=== PATIENT | female | born 1960 | race African-American/Black ===

== ENCOUNTER 2018-09-05 20:55 | Inpatient (IN) | payer MEDICAID ==
[~2018-09-05] VITALS: Ht 160 cm; Wt 76.8 kg
[~2018-09-05 20:55] MED LIST: ASPI81CH43; ATO40T; PAXIL
[2018-09-05] MEDS ORDERED: MORPHINE SULFATE 4 MG/ML SYR/VIAL IV ONE ×2 (21:15→22:15)
[2018-09-05] MEDS ORDERED: PROMETHAZINE HCL 25 MG/ML 1ML IV ONE (21:15)
[2018-09-05] MEDS ORDERED: ONDANSETRON HCL 4 MG/2 ML VIAL IV ONE (21:30)
[2018-09-05 22:14] LABS: Basophils # (auto) 0 uL; Basophils % (auto) 0.3 % (0.0-2.0); Eosinophils # (auto) 0 uL; Eosinophils % (auto) 0.1 % (0.0-7.0); Hemoglobin 14.4 g/dL (12.2-16.2); Lymphocytes # (auto) 1.7 uL; Lymphocytes % (auto) 14.3 % (10.0-50.0); Mean Corpuscular Hemoglobin 31.6 pg (28.0-32.0); Mean Corpuscular Hgb Conc. 33.5 g/dL (32.0-36.0); Mean Corpuscular Volume 94.3 fL (80.0-100.0); Monocytes # (auto) 0.5 uL; Monocytes % (auto) 3.9 % (0.0-12.0); Neutrophils # (auto) 9.7 uL; Neutrophils % (auto) 81.4 % (37.0-80.0); Platelet Count (auto) 279 10^3/uL (140-450); Red Blood Cells 4.56 10^6/uL (4.0-5.20); Red Cell Distribution Width 13.8 % (11.8-14.3); White Blood Cell 11.9 10^3/uL (4.4-10.8)
[2018-09-05 22:27] LABS: Alanine Aminotransferase 30 U/L (13-56); Albumin 4.3 g/dL (3.4-5.0); Anion Gap 7 (5-15); Aspartate Aminotransferase 18 U/L (15-37); BUN/Creatinine Ratio 17.1; Blood Urea Nitrogen 13 mg/dL (7-18); Carbon Dioxide 27 mmol/L (21-32); Chloride 109 mmol/L (98-107); GFR African American 101 mL/min; GFR Non-African American 83 mL/min; Glucose 109 mg/dL (74-106); Lipase 246 U/L (73-393); Magnesium 2.1 mg/dL (1.6-2.6); Potassium 3.4 mmol/L (3.5-5.1); Sodium 143 mmol/L (136-145)
[2018-09-05 22:33] LABS: Alkaline Phosphatase 91 U/L (45-117); Amylase 102 U/L (25-115); Bilirubin, Total 0.3 mg/dL (0.2-1.0); Blood Alcohol < 3.0 mg/dL (0-5); Total Protein 7.4 g/dL (6.4-8.2)
[2018-09-05 22:37] LABS: Partial Thromboplastin Time 23.6 sec (23.78-33.04); Prothrombin Time 10.7 sec (9.27-12.13)
[2018-09-05] MEDS ORDERED: IOHEXOL 300 MG/ML 100ML BOTTLE IJ ONE (22:54)
[2018-09-05] MEDS ORDERED: SODIUM CHLORIDE 0.9% 1,000 ML IV ONE (23:30)
[2018-09-06] MEDS ORDERED: CIPROFLOXACIN 400MG/200ML 200 ML IV ONE (00:30)
[2018-09-06] MEDS ORDERED: PROMETHAZINE HCL 25 MG/ML 1ML IV ONE (01:45)
[2018-09-06] MEDS ORDERED: HYDROmorphone HCL 2 MG/ML VL IV ONE (01:45)
[2018-09-06] MEDS ORDERED: metroNIDAZOLE 500MG/100ML 100 ML IV ONE (02:00)
[2018-09-06] MEDS ORDERED: SODIUM CHLORIDE 0.9% 1,000 ML IV SCH (04:30)
[2018-09-06] MEDS ORDERED: POTASSIUM CHL 20 Meq TABLET PO ONE (04:30)
[2018-09-06] MEDS ORDERED: ACETAMINOPHEN 500 MG TAB PO PRN (04:30)
[2018-09-06] MEDS ORDERED: metroNIDAZOLE 500MG/100ML 100 ML IV SCH (06:00)
[2018-09-06 07:52] LABS: Basophils # (auto) 0 uL; Basophils % (auto) 0.2 % (0.0-2.0); Eosinophils # (auto) 0 uL; Hematocrit 42.2 % (36.0-46.0); Hemoglobin 14.1 g/dL (12.2-16.2); Lymphocytes # (auto) 2.3 uL; Lymphocytes % (auto) 24.5 % (10.0-50.0); Mean Corpuscular Hemoglobin 31.5 pg (28.0-32.0); Mean Corpuscular Hgb Conc. 33.4 g/dL (32.0-36.0); Mean Corpuscular Volume 94.3 fL (80.0-100.0); Monocytes # (auto) 0.5 uL; Monocytes % (auto) 5.5 % (0.0-12.0); Neutrophils # (auto) 6.5 uL; Neutrophils % (auto) 69.8 % (37.0-80.0); Nucleated Red Blood Cells % 0.2 %; Platelet Count (auto) 285 10^3/uL (140-450); Red Blood Cells 4.47 10^6/uL (4.0-5.20); Red Cell Distribution Width 13.9 % (11.8-14.3); White Blood Cell 9.2 10^3/uL (4.4-10.8)
[2018-09-06 08:13] LABS: BUN/Creatinine Ratio 10.2; Calcium 9.1 mg/dL (8.5-10.1); Potassium 3.7 mmol/L (3.5-5.1)
[2018-09-06] MEDS ORDERED: cefTRIAXone 1GM/50ML D5W 50 ML IV SCH (09:00)
[2018-09-06] MEDS: ONDANSETRON HCL 4 MG/2 ML VIAL IV PRN ×2 (11:08→20:57)
[2018-09-06] MEDS ORDERED: GASTROGRAFIN 30 ML SOL ONE (11:37)
[2018-09-06] MEDS ORDERED: FAMOTIDINE (10MG/ML) 2ML VL IV ONE (11:45)
[2018-09-06] MEDS: D5W/SOD CHL 0.45%/KCL 20MEQ 1,000 ML IV SCH ×2 (12:09→21:30)
[2018-09-06] MEDS ORDERED: GOLYTELY 4L KIT PO ONE (14:15)
[2018-09-06 14:16] VITALS: BP 185/91
[2018-09-06] MEDS: HYDROmorphone HCL 2 MG/ML VL IV PRN ×2 (16:31→20:57)
[2018-09-06 16:51] VITALS: BP 151/88
[2018-09-06 22:05] VITALS: BP 157/91
[2018-09-06] MEDS: PANTOPRAZOLE 40 MG/10 ML VIAL IV SCH (22:46)
[2018-09-07] MEDS: HYDROmorphone HCL 2 MG/ML VL IV PRN ×2 (00:47→03:59)
[2018-09-07] MEDS: ONDANSETRON HCL 4 MG/2 ML VIAL IV PRN (03:59)
[2018-09-07 05:00] VITALS: BP 157/86
[2018-09-07] MEDS ORDERED: GOLYTELY 4L KIT PO ONE (06:00)
[2018-09-07 07:00] LABS: Basophils # (auto) 0 uL; Basophils % (auto) 0.3 % (0.0-2.0); Eosinophils # (auto) 0 uL; Hematocrit 36.9 % (36.0-46.0); Hemoglobin 12.4 g/dL (12.2-16.2); Lymphocytes # (auto) 3.4 uL; Lymphocytes % (auto) 26.3 % (10.0-50.0); Mean Corpuscular Hemoglobin 31.5 pg (28.0-32.0); Mean Corpuscular Hgb Conc. 33.6 g/dL (32.0-36.0); Mean Corpuscular Volume 93.8 fL (80.0-100.0); Monocytes # (auto) 0.9 uL; Monocytes % (auto) 7.3 % (0.0-12.0); Neutrophils # (auto) 8.5 uL; Neutrophils % (auto) 66.1 % (37.0-80.0); Platelet Count (auto) 239 10^3/uL (140-450); Red Blood Cells 3.94 10^6/uL (4.0-5.20); Red Cell Distribution Width 14.1 % (11.8-14.3); White Blood Cell 12.8 10^3/uL (4.4-10.8)
[2018-09-07 07:30] LABS: BUN/Creatinine Ratio 12.9; Calcium 8.5 mg/dL (8.5-10.1); Potassium 3.3 mmol/L (3.5-5.1)
[2018-09-07] MEDS: D5W/SOD CHL 0.45%/KCL 20MEQ 1,000 ML IV SCH (08:47)
[2018-09-07 09:00] VITALS: BP 165/98
[2018-09-07] MEDS: PANTOPRAZOLE 40 MG/10 ML VIAL IV SCH (09:47)
[2018-09-07] MEDS ORDERED: SODIUM CHLORIDE LOCK 10 ML ONE (09:50)
[2018-09-07] MEDS: MORPHINE SULFATE 4 MG/ML SYR/VIAL IV PRN ×2 (10:32→22:45)
[2018-09-07 11:00] VITALS: BP 189/88
[2018-09-07] MEDS ORDERED: NIFEdipine ER 30 MG TAB PO ONE (11:15)
[2018-09-07] MEDS ORDERED: LISINOPRIL 20 MG TAB PO ONE (11:15)
[2018-09-07] MEDS ORDERED: hydrALAZINE HCL 20 MG/ML VL IV STA (11:37)
[2018-09-07] MEDS: fentaNYL CITRATE 100 MCG/2 ML VL ONE ×2 (11:58→12:01)
[2018-09-07] MEDS: MIDAZOLAM HCL 5 MG/ML-1ML VIAL ONE ×3 (11:58→12:04)
[2018-09-07] MEDS ORDERED: fentaNYL CITRATE 100 MCG/2 ML VL ONE (12:06)
[2018-09-07] MEDS ORDERED: MIDAZOLAM HCL 5 MG/ML-1ML VIAL ONE (12:06)
[2018-09-07] MEDS ORDERED: MEPERIDINE HCL (50 MG/ML) 1 ML VIAL ONE (12:55)
[2018-09-07] MEDS ORDERED: PROPOFOL 10 MG/ML 20 ML IV ONE (13:00)
[2018-09-07] MEDS ORDERED: DEXAMETHASONE SOD PHOS 10MG/1ML VIAL INJ ONE (13:00)
[2018-09-07] MEDS ORDERED: HYDROmorphone HCL 2 MG/ML VL IV PRN (13:30)
[2018-09-07] MEDS ORDERED: ePHEDrine SULFATE 50 MG/ML AMP IV PRN (13:30)
[2018-09-07] MEDS ORDERED: MIDAZOLAM HCL 1MG/1ML-2 ML VIAL IV PRN (13:30)
[2018-09-07] MEDS ORDERED: ONDANSETRON HCL 4 MG/2 ML VIAL IV ONE (13:30)
[2018-09-07] MEDS ORDERED: LABETALOL HCL 5 MG/ML 4ML SYRINGE IV PRN (13:30)
[2018-09-07] MEDS ORDERED: MORPHINE SULFATE 4 MG/ML SYR/VIAL IV PRN (13:30)
[2018-09-07] MEDS ORDERED: KETOROLAC TROMETH 30 MG/ML 1ML VIAL IV ONE (13:30)
[2018-09-07] MEDS ORDERED: MORPHINE SULFATE 4 MG/ML SYR/VIAL IV ONE (14:00)
[2018-09-07] MEDS ORDERED: LABETALOL HCL 5 MG/ML 4ML SYRINGE IV ONE (14:03)
[2018-09-07] MEDS: metroNIDAZOLE 500MG/100ML 100 ML IV SCH ×2 (14:29→22:38)
[2018-09-07 16:00] VITALS: BP 153/88
[2018-09-07] MEDS: SUCRALFATE 1 GM/10 ML ORAL SUSP PO SCH ×2 (17:12→22:38)
[2018-09-07 20:00] VITALS: BP 177/88
[2018-09-07 21:30] VITALS: BP 137/72
[2018-09-07] MEDS: PANTOPRAZOLE 40 MG TAB PO SCH (22:38)
[2018-09-08] MEDS: ONDANSETRON HCL 4 MG/2 ML VIAL IV PRN (00:31)
[2018-09-08] MEDS ORDERED: HYDROcodone-ACET 7.5/325MG TAB PO ONE (01:00)
[2018-09-08 02:42] LABS: Urine Bacteria NONE SEEN /hpf (None Seen); Urine Blood Negative /uL (Negative); Urine Mucus FEW (None Seen); Urine Specific Gravity 1.006 (1.001-1.035); Urine WBC 1 /hpf (0 - 5)
[2018-09-08 02:53] LABS: Alcohol, Urine < 3.0 mg/dL (0-5); Amphetamine Screen, Urine NEGATIVE (NEGATIVE); Barbiturate Scree,Urine NEGATIVE (NEGATIVE); Benzodiazephine Screen, Urine POSITIVE (NEGATIVE); Cannabinoid Screen, Urine POSITIVE (NEGATIVE); Cocaine Screen, Urine NEGATIVE (NEGATIVE); Opiate Scree,Urine NEGATIVE (NEGATIVE); Phencyclidine Screen, Urine NEGATIVE (NEGATIVE)
[2018-09-08] MEDS: D5W/SOD CHL 0.45%/KCL 20MEQ 1,000 ML IV SCH ×2 (03:57)
[2018-09-08 05:00] VITALS: BP 139/82
[2018-09-08 05:33] LABS: Basophils # (auto) 0 uL; Basophils % (auto) 0.2 % (0.0-2.0); Eosinophils # (auto) 0 uL; Hematocrit 40.6 % (36.0-46.0); Hemoglobin 13.7 g/dL (12.2-16.2); Lymphocytes % (auto) 33.4 % (10.0-50.0); Mean Corpuscular Hemoglobin 31.3 pg (28.0-32.0); Mean Corpuscular Hgb Conc. 33.8 g/dL (32.0-36.0); Mean Corpuscular Volume 92.8 fL (80.0-100.0); Monocytes # (auto) 1.2 uL; Monocytes % (auto) 7.9 % (0.0-12.0); Neutrophils # (auto) 8.9 uL; Neutrophils % (auto) 58.5 % (37.0-80.0); Nucleated Red Blood Cells % 0.1 %; Platelet Count (auto) 252 10^3/uL (140-450); Red Blood Cells 4.38 10^6/uL (4.0-5.20); Red Cell Distribution Width 13.5 % (11.8-14.3); White Blood Cell 15.1 10^3/uL (4.4-10.8)
[2018-09-08 05:56] LABS: BUN/Creatinine Ratio 6.1; Potassium 3.2 mmol/L (3.5-5.1)
[2018-09-08] MEDS: metroNIDAZOLE 500MG/100ML 100 ML IV SCH (06:44)
[2018-09-08] MEDS: SUCRALFATE 1 GM/10 ML ORAL SUSP PO SCH ×2 (06:44→11:56)
[2018-09-08 09:00] VITALS: BP 136/83
[2018-09-08] MEDS ORDERED: LIDOCAINE VISCOUS 2% 15ML UD ONE (09:08)
[2018-09-08] MEDS ORDERED: LISINOPRIL 20 MG TAB PO SCH (10:00)
[2018-09-08] MEDS ORDERED: NIFEdipine ER 30 MG TAB PO SCH (10:00)
[2018-09-08] MEDS: PANTOPRAZOLE 40 MG TAB PO SCH (10:34)
[2018-09-08] MEDS ORDERED: POTASSIUM CHL 20 Meq TABLET PO ONE (10:45)
[2018-09-08 12:00] VITALS: BP 136/83
== END 2018-09-08 13:30 | disposition home or self-care (01) | DRG 241 ==
LOC: EDBD 20:55 → ER 21:06 → OVERFLOW 21:07 → CENTRAL 09-06 13:33
PROVIDERS: ADMIT Nurse Practitioner Family; ATTEND Internal Medicine
PROC: 0DB68ZX Excision of Stomach, Via Natural or Artificial Opening Endoscopic, Diagnostic (ICD-10-PCS; principal; 2018-09-07 11:55)
PROC: 0DBN8ZX Excision of Sigmoid Colon, Via Natural or Artificial Opening Endoscopic, Diagnostic (ICD-10-PCS; 2018-09-07 12:53)
DX: K29.70 Gastritis, unspecified, without bleeding (principal); R65.10 Systemic inflammatory response syndrome (SIRS) of non-infectious origin without acute organ dysfunction; R16.0 Hepatomegaly, not elsewhere classified; E78.5 Hyperlipidemia, unspecified; K63.5 Polyp of colon; K64.8 Other hemorrhoids; K44.9 Diaphragmatic hernia without obstruction or gangrene; Z83.3 Family history of diabetes mellitus; F17.200 Nicotine dependence, unspecified, uncomplicated; Z53.8 Procedure and treatment not carried out for other reasons; K57.30 Diverticulosis of large intestine without perforation or abscess without bleeding; F32.9 Major depressive disorder, single episode, unspecified
CPT/HCPCS: 36415; 71045; 74177; 80048; 80053; 80307; 80320; 81001; 82150; 83605; 83690; 83735; 85025; 85610; 85730; 87040; 87045; 87493; 87899; 93005; 94761; 96365; 96366; 96367; 96368; 96375; A6257; C9113; G0378; J0696; J1100; J2250; J2405; J2704; J3490

== ENCOUNTER 2023-10-21 11:09 | Inpatient (IN) | payer MEDICAID ==
[~2023-10-21] VITALS: Ht 160 cm; Wt 84.7 kg
[2023-10-21] MEDS ORDERED: ASPirin-EC 325mg tab PO ONE (11:45)
[2023-10-21 12:51] LABS: Base Excess -1.6 mmol/L (-2.0-2.0)
[2023-10-21 13:29] LABS: Basophils # (auto) 0 10 ^3/uL (0-0.2); Basophils % (auto) 0.2 % (0.0-2.0); Eosinophils # (auto) 0.1 10 ^3/uL (0-0.8); Eosinophils % (auto) 0.6 % (0.0-7.0); Hematocrit 44.2 % (36.0-46.0); Hemoglobin 14.7 g/dL (12.2-16.2); Lymphocytes # (auto) 3.2 10 ^3/uL (0.4-5.4); Lymphocytes % (auto) 36.8 % (10.0-50.0); Mean Corpuscular Hemoglobin 31.9 pg (28.0-32.0); Mean Corpuscular Hgb Conc. 33.2 g/dL (32.0-36.0); Monocytes # (auto) 0.4 10 ^3/uL (0-1.3); Monocytes % (auto) 4.6 % (0.0-12.0); Neutrophils % (auto) 57.8 % (37.0-80.0); White Blood Cell 8.6 10^3/uL (4.4-10.8)
[2023-10-21 13:43] LABS: Alanine Aminotransferase 83 U/L (7-40); Albumin 4.6 g/dL (3.2-4.8); Alkaline Phosphatase 94 U/L (46-116); Anion Gap 6 (5-15); Aspartate Aminotransferase 39 U/L (13-40); BUN/Creatinine Ratio 9.7 (10.0-20.0); Blood Urea Nitrogen 7 mg/dL (9-23); Calcium 9.7 mg/dL (8.7-10.4); Carbon Dioxide 26 mmol/L (20-30); Chloride 108 mmol/L (98-107); Glucose 99 mg/dL (74-106); Lipase 43 U/L (12-53); Potassium 4.1 mmol/L (3.5-5.1); Sodium 140 mmol/L (136-145)
[2023-10-21 13:44] LABS: Bilirubin, Total 0.4 mg/dL (0.2-1.0); Total Protein 6.9 g/dL (5.7-8.2)
[2023-10-21 13:46] LABS: INR 1.05 (0.9-1.15)
[2023-10-21] MEDS ORDERED: ACETAMINOPHEN 325 MG TAB PO PRN (15:30)
[2023-10-21] MEDS ORDERED: ONDANSETRON HCL 4 MG/2 ML VIAL IV PRN (15:30)
[2023-10-21] MEDS ORDERED: NITROGLYCERIN 0.4 MG SL TAB SL PRN (15:30)
[2023-10-21] MEDS ORDERED: MORPHINE SULFATE 4 MG/ML SYR/VIAL IV PRN (15:30)
[2023-10-21 16:00] VITALS: BP 124/72; PULSE 71; RESP 18; TEMP 98; O2SAT 99
[2023-10-21 16:42] LABS: INR 1.05 (0.9-1.15)
[2023-10-21 18:06] VITALS: PULSE 68; RESP 23; O2SAT 99
[2023-10-21 19:05] VITALS: PULSE 63; RESP 18; O2SAT 99
[2023-10-21 19:05] LABS: Urine Bacteria NONE SEEN /hpf (None Seen); Urine Blood Negative /uL (Negative); Urine Clarity Clear (Clear); Urine Color Colorless (Yellow); Urine Protein, UAD Negative (Negative); Urine Specific Gravity 1.007 (1.001-1.035); Urine Urobilinogen Normal (Negative); Urine WBC 2 /hpf (0 - 5)
[2023-10-21] MEDS: IPRATROPIUM BROM 0.5 MG/2.5ML INH SOL NEB SCH (19:05)
[2023-10-21] MEDS: ALBUTEROL SULF 2.5 MG/0.5ML(0.5%) NEB SOLN NEB SCH (19:05)
[2023-10-21 19:11] VITALS: PULSE 77; RESP 16; O2SAT 96
[2023-10-21 19:45] VITALS: PULSE 70; RESP 18; O2SAT 98
[2023-10-21] MEDS ORDERED: MORPHINE SULFATE INJ 2 MG/ml SYRG IV PRN (20:15)
[2023-10-21] MEDS ORDERED: ATORVASTATIN 20 MG TAB PO SCH (22:00)
[2023-10-21 22:23] VITALS: PULSE 84; RESP 16; O2SAT 96
[2023-10-21] MEDS ORDERED: MELATONIN 5 MG TAB PO ONE ×2 (22:45)
[2023-10-21] MEDS: ATORVASTATIN 20 MG TAB PO SCH (23:00)
[2023-10-21] MEDS ORDERED: ALPR0.5T7 PO (23:13)
[2023-10-21] MEDS ORDERED: VARE1TAB12 PO (23:14)
[2023-10-21] MEDS ORDERED: CYCL-839 PO (23:16)
[2023-10-21] MEDS ORDERED: LISI20TA56 PO (23:18)
[2023-10-22] VITALS (22 sets, daily range): BP systolic 124–149; BP diastolic 70–102; PULSE 60–81; RESP 12–20; TEMP 97.7–98.9; O2SAT 95–100
[2023-10-22] MEDS: ALBUTEROL SULF 2.5 MG/0.5ML(0.5%) NEB SOLN NEB SCH ×5 (00:22→22:03)
[2023-10-22] MEDS: IPRATROPIUM BROM 0.5 MG/2.5ML INH SOL NEB SCH ×5 (00:22→22:03)
[2023-10-22 05:39] LABS: Basophils # (auto) 0 10 ^3/uL (0-0.2); Basophils % (auto) 0.1 % (0.0-2.0); Eosinophils # (auto) 0.1 10 ^3/uL (0-0.8); Eosinophils % (auto) 1.3 % (0.0-7.0); Hematocrit 39.2 % (36.0-46.0); Hemoglobin 13.3 g/dL (12.2-16.2); Lymphocytes # (auto) 4.6 10 ^3/uL (0.4-5.4); Lymphocytes % (auto) 49.2 % (10.0-50.0); Mean Corpuscular Hemoglobin 32.2 pg (28.0-32.0); Mean Corpuscular Hgb Conc. 33.9 g/dL (32.0-36.0); Mean Corpuscular Volume 94.8 fL (80.0-100.0); Monocytes # (auto) 0.6 10 ^3/uL (0-1.3); Monocytes % (auto) 6.2 % (0.0-12.0); Neutrophils % (auto) 43.2 % (37.0-80.0); Nucleated Red Blood Cells % 0.1 %; Red Blood Cells 4.13 10^6/uL (4.0-5.20); Red Cell Distribution Width 14.1 % (11.8-14.3); White Blood Cell 9.3 10^3/uL (4.4-10.8)
[2023-10-22 06:02] LABS: Alanine Aminotransferase 80 U/L (7-40); Albumin 4.1 g/dL (3.2-4.8); Alkaline Phosphatase 81 U/L (46-116); Anion Gap 9 (5-15); Aspartate Aminotransferase 45 U/L (13-40); BUN/Creatinine Ratio 12.3 (10.0-20.0); Blood Urea Nitrogen 8 mg/dL (9-23); Calcium 9.7 mg/dL (8.5-10.1); Carbon Dioxide 25 mmol/L (20-30); Chloride 108 mmol/L (98-107); Glucose 84 mg/dL (74-106); Potassium 3.6 mmol/L (3.5-5.1); Sodium 142 mmol/L (136-145)
[2023-10-22 06:03] LABS: Bilirubin, Total 0.3 mg/dL (0.2-1.0); Total Protein 6.2 g/dL (5.7-8.2)
[2023-10-22] MEDS ORDERED: OXY5T GT (07:10)
[2023-10-22] MEDS: ASPirin 81 mg TAB PO SCH (08:57)
[2023-10-22] MEDS: LISINOPRIL 20 MG TAB PO SCH (08:57)
[2023-10-22] MEDS: NICOTINE 21MG/24 HR TOPICAL PATCH TD SCH (09:58)
[2023-10-22] MEDS ORDERED: ASPirin 81 mg TAB PO SCH (10:00)
[2023-10-22] MEDS ORDERED: predniSONE 20 MG TAB PO SCH (10:00)
[2023-10-22 14:05] LABS: INR 1.05 (0.9-1.15)
[2023-10-22] MEDS ORDERED: ANGIOMAX 250 MG VIAL IV ONE (16:21)
[2023-10-22] MEDS ORDERED: SODIUM CHL 0.9% 50 ML ONE (16:22)
[2023-10-22] MEDS ORDERED: MIDAZOLAM HCL 2MG/2ML 2ml VIAL (1mg/ml) ONE (16:22)
[2023-10-22] MEDS ORDERED: HEPARIN SODIUM (PORCINE) 5000 UNITS/ML 1ML VIAL ONE (16:22)
[2023-10-22] MEDS ORDERED: fentaNYL CITRATE 100 MCG/2 ML VL ONE (16:22)
[2023-10-22] MEDS ORDERED: IODIXANOL 320MG/ML 100ML BTL IV ONE (16:22)
[2023-10-22] MEDS ORDERED: VERAPAMIL 2.5MG/ML INJ 2ML VIAL IV ONE (16:22)
[2023-10-22] MEDS ORDERED: LIDOCAINE 2%HCL (LOCAL ANESTH.) INJ 20ML MDV ONE (16:23)
[2023-10-22] MEDS ORDERED: IOHEXOL 350 MG/ML 100ML IJ ONE ×2 (16:57→17:20)
[2023-10-22] MEDS ORDERED: CLOPIDOGREL 300 MG TAB ONE (17:26)
[2023-10-22] MEDS ORDERED: hydrALAZINE HCL 20 MG/ML VL IV PRN (21:45)
[2023-10-22] MEDS: ATORVASTATIN 20 MG TAB PO SCH (21:56)
[2023-10-22] MEDS ORDERED: MELATONIN 5 MG TAB PO ONE (22:00)
[2023-10-23] VITALS (14 sets, daily range): BP systolic 92–120; BP diastolic 51–75; PULSE 65–76; RESP 16–20; TEMP 97.3–98.4; O2SAT 95–100
[2023-10-23] MEDS: IPRATROPIUM BROM 0.5 MG/2.5ML INH SOL NEB SCH ×3 (07:05→18:10)
[2023-10-23] MEDS: ALBUTEROL SULF 2.5 MG/0.5ML(0.5%) NEB SOLN NEB SCH ×3 (07:05→18:10)
[2023-10-23] MEDS: predniSONE 20 MG TAB PO SCH (08:14)
[2023-10-23] MEDS: ASPirin 81 mg TAB PO SCH (08:14)
[2023-10-23] MEDS: CLOPIDOGREL BISULFATE 75 MG TAB PO SCH (08:15)
[2023-10-23] MEDS: LISINOPRIL 20 MG TAB PO SCH (08:15)
[2023-10-23] MEDS: NICOTINE 21MG/24 HR TOPICAL PATCH TD SCH (08:15)
[2023-10-23] MEDS: ALPRAZolam 0.25 MG TAB PO PRN ×2 (11:14→20:30)
[2023-10-23 12:29] LABS: Alanine Aminotransferase 64 U/L (7-40); Albumin 4.7 g/dL (3.2-4.8); Alkaline Phosphatase 93 U/L (46-116); Anion Gap 11 (5-15); Aspartate Aminotransferase 24 U/L (13-40); BUN/Creatinine Ratio 10.9 (10.0-20.0); Bilirubin, Total 0.8 mg/dL (0.2-1.0); Blood Urea Nitrogen 7 mg/dL (9-23); Carbon Dioxide 23 mmol/L (20-30); Chloride 107 mmol/L (98-107); Glucose 107 mg/dL (74-106); Potassium 3.7 mmol/L (3.5-5.1); Sodium 141 mmol/L (136-145); Total Protein 7.1 g/dL (5.7-8.2)
[2023-10-23] MEDS: ATORVASTATIN 20 MG TAB PO SCH (21:05)
[2023-10-24] VITALS (10 sets, daily range): BP systolic 97–113; BP diastolic 60–68; PULSE 69–80; RESP 18–19; TEMP 98.3–99; O2SAT 94–100
[2023-10-24] MEDS: ALBUTEROL SULF 2.5 MG/0.5ML(0.5%) NEB SOLN NEB SCH ×3 (06:56→13:22)
[2023-10-24] MEDS: IPRATROPIUM BROM 0.5 MG/2.5ML INH SOL NEB SCH ×3 (06:56→13:22)
[2023-10-24] MEDS: predniSONE 20 MG TAB PO SCH (08:11)
[2023-10-24] MEDS: CLOPIDOGREL BISULFATE 75 MG TAB PO SCH (08:11)
[2023-10-24] MEDS: LISINOPRIL 20 MG TAB PO SCH (08:11)
[2023-10-24] MEDS: NICOTINE 21MG/24 HR TOPICAL PATCH TD SCH (08:15)
[2023-10-24] MEDS: ASPirin 81 mg TAB PO SCH (08:15)
[2023-10-24 09:30] LABS: Alanine Aminotransferase 69 U/L (7-40); Albumin 4.7 g/dL (3.2-4.8); Alkaline Phosphatase 87 U/L (46-116); Anion Gap 9 (5-15); Aspartate Aminotransferase 29 U/L (13-40); BUN/Creatinine Ratio 14.9 (10.0-20.0); Blood Urea Nitrogen 10 mg/dL (9-23); Carbon Dioxide 23 mmol/L (20-30); Chloride 107 mmol/L (98-107); Glucose 102 mg/dL (74-106); Potassium 3.5 mmol/L (3.5-5.1); Sodium 139 mmol/L (136-145)
[2023-10-24 09:31] LABS: Bilirubin, Total 0.5 mg/dL (0.2-1.0)
[2023-10-24] MEDS ORDERED: METOPROLOL SUCCINATE XL 50 MG TAB PO ONE (10:30)
[2023-10-24] MEDS ORDERED: AMIODARONE HCL 200 MG TAB PO ONE (10:30)
[2023-10-24] MEDS ORDERED: AMIO200T13 PO (10:41)
[2023-10-24] MEDS ORDERED: METO25TA93 PO (10:41)
[2023-10-24] MEDS ORDERED: ATO40T PO (10:41)
[2023-10-24] MEDS ORDERED: CLOP75TA28 PO (10:41)
[2023-10-24] MEDS ORDERED: ASPI1TAB20 PO (10:41)
[2023-10-24] MEDS ORDERED: AMIODARONE HCL 200 MG TAB PO SCH (22:00)
[2023-10-25] MEDS ORDERED: METOPROLOL SUCCINATE XL 50 MG TAB PO SCH (10:00)
== END 2023-10-24 16:15 | disposition home or self-care (01) | DRG 175 ==
LOC: ER 11:09 → TELE 15:39 → TELE-WESTW 21:30
PROVIDERS: ADMIT Nurse Practitioner Family; ATTEND Nurse Practitioner Acute Care
PROC: 027135Z Dilation of Coronary Artery, Two Arteries with Two Drug-eluting Intraluminal Devices, Percutaneous Approach (ICD-10-PCS; principal; 2023-10-22)
PROC: B211YZZ Fluoroscopy of Multiple Coronary Arteries using Other Contrast (ICD-10-PCS; 2023-10-22)
PROC: 4A023N7 Measurement of Cardiac Sampling and Pressure, Left Heart, Percutaneous Approach (ICD-10-PCS; 2023-10-22)
DX: I25.110 Atherosclerotic heart disease of native coronary artery with unstable angina pectoris (principal); J44.1 Chronic obstructive pulmonary disease with (acute) exacerbation; I24.9 Acute ischemic heart disease, unspecified; E78.5 Hyperlipidemia, unspecified; I10 Essential (primary) hypertension; F14.90 Cocaine use, unspecified, uncomplicated; E66.01 Morbid (severe) obesity due to excess calories; J98.11 Atelectasis; I48.91 Unspecified atrial fibrillation; F32.A Depression, unspecified; Z82.5 Family history of asthma and other chronic lower respiratory diseases; Z87.891 Personal history of nicotine dependence; Z82.49 Family history of ischemic heart disease and other diseases of the circulatory system; Z83.3 Family history of diabetes mellitus; Z68.33 Body mass index [BMI] 33.0-33.9, adult; Z79.01 Long term (current) use of anticoagulants; I25.2 Old myocardial infarction; Z63.4 Disappearance and death of family member; Z79.02 Long term (current) use of antithrombotics/antiplatelets; Z79.82 Long term (current) use of aspirin
CPT/HCPCS: 36415; 36600; 71045; 80053; 81001; 82805; 83690; 83735; 84100; 84484; 85025; 85379; 85610; 85730; 86850; 86900; 86901; 92928; 93005; 93306; 93458; 94640; 96374; 99152; C1874; G0378; J2250; Q9967

== ENCOUNTER → 2025-01-02 | Outpatient (CLI) | payer MEDICAID ==
[~2025-01-02] VITALS: Ht 160 cm; Wt 88.5 kg
[~2025-01-02] MED LIST changes: +ALPR0.5T7 PO; +AMIO200T13 PO; +ASPI1TAB20 PO; -ATO40T; +ATOR-507; +ATOR-507 PO; +CLOP75TA28 PO; +CYCL-839 PO; +LISI20TA56 PO; +METO25TA93 PO; +OXY5T GT; +VARE1TAB12 PO
[2025-01-02] MEDS: REGADENOSON 0.4 MG/5 ML SYRG IV ONE (09:43)
--- NOTE | 2025-01-02 14:16 | DVHSR ---
APPROVED REPORT Exam: Nuclear Stress Test Indication: Chest pain BMI: 0 Medical History Medical History: A-fib Allergies: No known drug allergies Stress Test Details Stress Test: Pharmacologic stress testing performed using 0.4 mg of regadenoson per 5 mL given IV ov er 10 seconds. HR Resting HR: 65 bpmMax Heart Rate (APMHR): 157.798444 bpm Max HR Achieved: 82 bpmTarget HR (85% APMHR): 133.675008 bpm % of APMHR: 52.23 Recovery HR: 72 bpm BP Resting BP: 149/74 mmHg Recovery BP: 134/73 mmHg ECG Resting ECG: Sinus Rhythm Clinical Reason for Termination: Completed protocol Nurse Comments Recieved pt. from [facility]. A/Ox4 on RA. Connected to director of cardiac rehabilitation, VS stable. PIV flushes well. Reviewed POC. Pt. verbalized understanding of procedure including risks and side ef fects, agrees for stress testing. Lexiscan stress test performed per protocol. Maker[employer] administered Cardiolite. Pt. tolerated well . Pt. stable, no change on exam. VS returned to baseline. Transferred to [facility] via wheelchair w/ te ch. Stress ECG Conclusion lvef 55% normal ecg portion of stress , NSR no severe ischemia noted grossly normal perfusion NM EXAM: Myocardial Perfusion REST/STRESS Imaging Protocol: Rest Tc-99m/Stress Tc-99m 1 day Resting Data Rest SPECT myocardial perfusion imaging was performed in supine position 60 minutes following the int ravenous injection of 15 mCi of Tc-99m Sestamibi. Time of rest injection: 808 Date: 01/02/2025 Time of rest imagin Date: 01/02/2025 Administration Route: IV Administration Site: Left Arm Pharmacologic Stress Pharmacologic stress test was performed by injecting Regadenoson 0.4 mg IV push followed by the intra venous injection of 38 mCi of Tc-99m Sestamibi. Time of stress injection: 944 Date: 01/02/2025 Time of stress imagin Date: 01/02/2025 Administration Route: IV Administration Site: Left Arm Gated Stress SPECT was performed 60 minutes after stress injection. The images were gated to evaluate regional wall motion and calculate left ventricular ejection fracti on. Stress only was performed in the Supine position. Nuclear Conclusion Nuclear Findings: negative for ischemia Left Ventricular Function: normal lvef 55% normal ecg portion of stress , NSR no severe ischemia noted grossly normal perfusion
== END | disposition home or self-care (01) ==
LOC: XYW 07:39
PROVIDERS: ATTEND Internal Medicine
DX: R07.9 Chest pain, unspecified (principal); I48.91 Unspecified atrial fibrillation
CPT/HCPCS: 78452; 93017; A9500

== ENCOUNTER 2025-02-11 17:53 | Inpatient (IN) | payer MEDICAID ==
[~2025-02-11] VITALS: Ht 160 cm; Wt 96.1 kg
[~2025-02-11 17:53] MED LIST changes: +AZIT-43 PO; +METH-1181 PO; +OXYC30TA PO; +PANT-62 PO; +PARO10TA93 PO; +QUET150T16 PO
--- NOTE | 2025-02-11 19:20 | DVH ---
Exam: CT CT AB PEL WO CON-NO ORAL OR IV History: abdominal pain Comparison Study: None available at time of dictation. TECHNIQUE: Multidetector CT of the abdomen was performed from lung bases to pubic symphysis. Imaging was performed without IV contrast. Axial, coronal and sagittal multiplanar reformats were obtained fr om the axial data set by the technologist. Radiation Dose Information: CT Dose: CTDI volume is 13.18 mGy. Dose-length product is 673.48 mGy*cm FINDINGS: Evaluation of solid organs is limited due to lack of intravenous contrast use. Findings: Lung Bases: No acute or significant lung base finding. Normal heart size. No pleural or pericardial effusion. Liver: The liver is normal in size. No focal lesions. Gallbladder and Biliary Tree: Unremarkable Spleen: Unremarkable Pancreas: The pancreas is grossly normal in appearance. Adrenal Glands: Unremarkable Kidneys: Kidneys are grossly normal without calculi or hydronephrosis. Bladder: Grossly unremarkable for degree of distention. Bowel: The stomach is grossly normal in appearance. Small bowel and colon are normal in caliber and d istribution. The appendix is not visualized; however, no secondary findings of acute appendicitis id entified. Ascites: Absent Lymphadenopathy: No mesenteric, retroperitoneal or periportal lymphadenopathy. Abdominal Wall and Mesentery: Unremarkable. Vasculature: The visualized abdominal aorta is normal in size and caliber. Evaluation of abdominal a nd pelvic vessels is limited due to lack of intravenous contrast. Pelvic Organs: Unremarkable Musculoskeletal: No aggressive focal bony lesions, acute fractures or dislocation. Soft tissues: Unremarkable IMPRESSION: 1. No findings of bowel obstruction. 2. No cholelithiasis Radiation optimization: All CT scans at this facility use at least one of these dose optimization conchis hniques: automated exposure control mA and/or kV adjustment per patient size (includes targeted exam s where dose is matched to clinical indication) or iterative reconstruction. HS:Y
[2025-02-11 19:36] LABS: Basophils # (auto) 0 10 ^3/uL (0-0.2); Basophils % (auto) 0.1 % (0.0-2.0); Eosinophils # (auto) 0 10 ^3/uL (0-0.8); Hematocrit 45.3 % (36.0-46.0); Hemoglobin 15.1 g/dL (12.2-16.2); Lymphocytes # (auto) 1.4 10 ^3/uL (0.4-5.4); Lymphocytes % (auto) 9.2 % (10.0-50.0); Mean Corpuscular Hemoglobin 31.5 pg (28.0-32.0); Mean Corpuscular Hgb Conc. 33.4 g/dL (32.0-36.0); Mean Corpuscular Volume 94.6 fL (80.0-100.0); Monocytes # (auto) 0.8 10 ^3/uL (0-1.3); Monocytes % (auto) 5.5 % (0.0-12.0); Neutrophils # (auto) 12.8 10 ^3/uL (1.6-8.6); Neutrophils % (auto) 85.2 % (37.0-80.0); Nucleated Red Blood Cells % 0.1 %; Platelet Count (auto) 300 10^3/uL (140-450); Red Blood Cells 4.79 10^6/uL (4.0-5.20); Red Cell Distribution Width 14.7 % (11.8-14.3)
[2025-02-11 19:54] LABS: Alanine Aminotransferase 31 U/L (7-40); Alkaline Phosphatase 92 U/L (46-116); Anion Gap 9 (5-15); Aspartate Aminotransferase 23 U/L (13-40); Bilirubin, Total 0.6 mg/dL (0.2-1.0); Blood Urea Nitrogen 14 mg/dL (9-23); Carbon Dioxide 27 mmol/L (20-31); Chloride 103 mmol/L (98-107); Lipase 27 U/L (12-53); Potassium 3.9 mmol/L (3.5-5.1); Sodium 139 mmol/L (136-145); Total Protein 7.4 g/dL (5.7-8.2)
[2025-02-11 19:57] LABS: Albumin 5.2 g/dL (3.2-4.8); Calcium 10.5 mg/dL (8.7-10.4); Glucose 135 mg/dL (74-106)
--- NOTE | 2025-02-11 20:44 | ED.PDOC ---
History of Present Illness HPI Comments 64 y/o obese F, with a history of COPD, HLD, HTN, 2 PTCA's, and 3 C-sections, is BIBA for c/o lower abdominal pain and diarrhea, today. Patient reports on having pain and diarrhea for the past few days. She states on pain radiating to her back and bilateral hips and describes it as if she had "gas" in her lower abdomen. She denies any nausea, vomiting, fever, chills, or other associated symptoms or modifiers at this time. Chief Complaint: Abdominal Pain Time Seen by MD: 18:30 Primary Care Provider: MILAGROS Reviewed Notes: Nurses Notes, Oncology Coordinator Notes, Medications, Allergies Allergies: Coded Allergies: NO KNOWN ALLERGIES (Unverified , 01/02/25) Home Meds Active Scripts Atorvastatin Calcium (Lipitor) 40 Mg Tab, 1 TAB PO QPM, #90 TAB 1 Refill Prov:JULIETH DIA MD 10/24/23 Clopidogrel Bisulfate (Plavix) 75 Mg Tab, 1 TAB PO DAILY, #90 TAB 1 Refill Prov:JULIETH DIA MD 10/24/23 Aspirin (Aspir-81) 81 Mg Tab, 1 TAB PO DAILY, #30 TAB 5 Refills Prov:JULIETH DIA MD 10/24/23 Metoprolol Succinate (Metoprolol Succinate Er) 25 Mg Tab, 1 TAB PO DAILY, #30 TAB 5 Refills Prov:JULIETH DIA MD 10/24/23 Amiodarone HCl (Amiodarone HCl) 200 Mg Tab, 200 MG PO BID, #60 TAB Prov:JULIETH DIA MD 10/24/23 Reported Medications Oxycodone Hcl (OXYCODONE HCL) 5 Mg Tb, MG GT, TAB 10/22/23 Lisinopril (Lisinopril) 20 Mg Tab, 20 MG PO DAILY for 30 Days, MG 10/21/23 Cyclobenzaprine Hcl (Cyclobenzaprine Hcl) 10 Mg Tab, 10 MG PO Q8HP PRN for FOR MUSCLE SPASM for 30 Days, MG 10/21/23 Varenicline Tartrate (Varenicline Starti... 0.5 mg X 11 & 1 mg X 42) 1 Tab Tab, 1 TAB PO BID, TAB 10/21/23 Alprazolam (Alprazolam) 0.5 Mg Tab, 1 TAB PO TID for ANXIETY, #90 TAB 10/21/23 Atorvastatin Calcium (Lipitor) 40 Mg Tab 02/03/11 [Paxil] No Conflict Check, 40 MG DAILY 06/14/10 Aspirin (Asa) 81 Mg Ch, DAILY 06/14/10 Information Source: Patient, Emergency Med Personnel Mode of Arrival: EMS Past Medical History PAST MEDICAL HISTORY: COPD, Depression, High Lipids, HTN Past Medical History (Other): obesity Surgical History: , PTCA THIRD MILLER History: No Pertinent THIRD MILLER History Family History Family History: Family hx of DM, Family hx of heart evan, Family hx of lung evan Social History Smoker: Non-Smoker, Quit Less Than 1 Year, Cigarettes Alcohol: Occasionally Drugs: Marijuana Lives In: Home All Other Systems: Reviewed and Negative (Comprehensive systems review obtained and negative except for what is stated in the HPI.) Physical Exam General Appearance: No Apparent Distress, Obese HEENT: Normal ENT Inspection, Pharynx Normal, TMs Normal Neck: Full Range of Motion, Non-Tender, Normal, Normal Inspection Respiratory: Chest Non-Tender, Lungs Clear, No Accessory Muscle Use, No Respiratory Distress, Normal Breath Sounds Cardiovascular: No Edema, No JVD, No Murmur, No Gallop, Normal Peripheral Pulses, Regular Rate/Rhythm Breast Exam: Deferred Gastrointestinal: No Organomegaly, Non Tender (patient forced my hand to perform deep palpations to abdomen with no response that shows signs of tenderness or rebound ), No Pulsatile Mass, Normal Bowel Sounds, Soft, Other Genitalia: Deferred Pelvic: Deferred Rectal: Deferred Extremities: No calf tenderness, Normal capillary refill, Normal inspection, Normal range of motion, Non-tender, No pedal edema Musculoskeletal : Apperance: Normal Neurologic: Alert, facility sales and admin II-XII nml as Tested, No Motor Deficits, Normal Affect, Normal Mood, No Sensory Deficits Cerebellar Function: Normal Reflexes: Normal Skin: Dry, Normal Color, Warm Lymphatic: No Adenopathy Was a procedure done? Was a procedure done?: No Differential Dx Considerations may include: gastritis, gastroenteritis, PID, cystitis, pyelonephritis, UTI, sbo, ileus, appendicitis, colitis, diverticulitis, kidney stones X-Ray, Labs, Meds, VS Vital Signs Date Time Temp Pulse Resp B/P (MAP) Pulse Ox O2 Delivery O2 Flow Rate FiO2 02/11/25 18:10 98.7 64 20 176/100 (125) 98 98.7 Lab Test 02/11/25 19:10 Range/Units White Blood Count 15.0 H 4.4-10.8 10^3/uL Red Blood Count 4.79 4.0-5.20 10^6/uL Hemoglobin 15.1 12.2-16.2 g/dL Hematocrit 45.3 36.0-46.0 % Mean Corpuscular Volume 94.6 80.0-100.0 fL Mean Corpuscular Hemoglobin 31.5 28.0-32.0 pg Mean Corpuscular Hemoglobin Concent 33.4 32.0-36.0 g/dL Red Cell Distribution Width 14.7 H 11.8-14.3 % Platelet Count 300 140-450 10^3/uL Mean Platelet Volume 7.6 6.9-10.8 fL Neutrophils (%) (Auto) 85.2 H 37.0-80.0 % Lymphocytes (%) (Auto) 9.2 L 10.0-50.0 % Monocytes (%) (Auto) 5.5 0.0-12.0 % Eosinophils (%) (Auto) 0.0 0.0-7.0 % Basophils (%) (Auto) 0.1 0.0-2.0 % Neutrophils # (Auto) 12.8 H 1.6-8.6 10 ^3/uL Lymphocytes # (Auto) 1.4 0.4-5.4 10 ^3/uL Monocytes # (Auto) 0.8 0-1.3 10 ^3/uL Eosinophils # (Auto) 0 0-0.8 10 ^3/uL Basophils # (Auto) 0 0-0.2 10 ^3/uL Nucleated Red Blood Cells 0.1 % Sodium Level 139 136-145 mmol/L Potassium Level 3.9 3.5-5.1 mmol/L Chloride Level 103 98-107 mmol/L Carbon Dioxide Level 27 20-31 mmol/L Anion Gap 9 5-15 Blood Urea Nitrogen 14 9-23 mg/dL Creatinine 1.00 0.550-1.02 mg/dL Glomerular Filtration Rate Calc 63 >90 mL/min BUN/Creatinine Ratio 14.0 10.0-20.0 Serum Glucose 135 H 74-106 mg/dL Calcium Level 10.5 H 8.7-10.4 mg/dL Total Bilirubin 0.6 0.2-1.0 mg/dL Aspartate Amino Transferase (AST) 23 13-40 U/L Alanine Aminotransferase (ALT) 31 7-40 U/L Alkaline Phosphatase 92 46-116 U/L Total Protein 7.4 5.7-8.2 g/dL Albumin 5.2 H 3.2-4.8 g/dL Lipase 27 12-53 U/L [place] [id number] Ph: [phone] DIAGNOSTIC IMAGING Diagnostic Imaging Report : [id number] Signed PATIENT: ALLEN ARORACCT: [id number] UNIT: [id number] : 1960 LOC: ER ROOM / BED: / AGE / SEX: 64 / F ADM STATUS: REG ER SERVICE [id number] ORDERING PHYSICIAN: AURELIANO ULLOA MD PROCEDURE(s): ABPL - CT AB PEL WO CON-NO ORAL OR IV REASON: abdominal pain ORDER NUMBER(s): [id number], ACCESSION NUMBER(s): [id number] Exam: CT CT AB PEL WO CON-NO ORAL OR IV History: abdominal pain Comparison Study: None available at time of dictation. TECHNIQUE: Multidetector CT of the abdomen was performed from lung bases to pubic symphysis. Imaging was performed without IV contrast. Axial, coronal and sagittal multiplanar reformats were obtained from the axial data set by the technologist. Radiation Dose Information: CT Dose: CTDI volume is 13.18 mGy. Dose-length product is 673.48 mGy*cm FINDINGS: Evaluation of solid organs is limited due to lack of intravenous contrast use. Findings: Lung Bases: No acute or significant lung base finding. Normal heart size. No pleural or pericardial effusion. Liver: The liver is normal in size. No focal lesions. Gallbladder and Biliary Tree: Unremarkable Spleen: Unremarkable Pancreas: The pancreas is grossly normal in appearance. Adrenal Glands: Unremarkable Kidneys: Kidneys are grossly normal without calculi or hydronephrosis. Bladder: Grossly unremarkable for degree of distention. Bowel: The stomach is grossly normal in appearance. Small bowel and colon are normal in caliber and distribution. The appendix is not visualized; however, no secondary findings of acute appendicitis identified. Ascites: Absent Lymphadenopathy: No mesenteric, retroperitoneal or periportal lymphadenopathy. Abdominal Wall and Mesentery: Unremarkable. Vasculature: The visualized abdominal aorta is normal in size and caliber. Evaluation of abdominal and pelvic vessels is limited due to lack of intravenous contrast. Pelvic Organs: Unremarkable Musculoskeletal: No aggressive focal bony lesions, acute fractures or dislocation. Soft tissues: Unremarkable IMPRESSION: 1. No findings of bowel obstruction. 2. No cholelithiasis Radiation optimization: All CT scans at this facility use at least one of these dose optimization techniques: automated exposure control mA and/or kV adjustment per patient size (includes targeted exams where dose is matched to clinical indication) or iterative reconstruction. HS:Y ATED BY: ADA RONQUILLO Jr., DO DICTATED DATE/TIME: 02/11/251916 SIGNED BY: ADA RONQUILLO Jr., SIGNED DATE/TIME: 02/11/251916 CC: Time of 1ST Reevaluation: 19:00 Reevaluation 1ST: Unchanged Time of 2ND Reevaluation: 20:10 Reevaluation 2ND: pt eloped Patient Education/Counseling: Diagnosis, Treatment Family Education/Counseling: No Family Present Additional Information Previous visit documents reviewed: January 02, 2025 and October 21, 2023 encounter for chest pain The following tests were ordered, and results were reviewed by me: CT abdomen/pelvis w/o contrast, UA, lipase, CMP, CBC Additional Information was gathered from interviewing the following independent historians: EMS I reviewed and agreed with the following test results read by other providers: CT abdomen/pelvis w/o contrast I discussed treatment and results with medical personnel and: Patient pt eloped before results were back. she did not want to wait in the lobby, but the ER is completely packed with no room Departure 1 Departure Time of Disposition: 20:46 Impression: Primary Impression: Nausea & vomiting Additional Impressions: Diarrhea Abdominal pain Disposition: 07 LEFT AWOL/ELOPED Condition: Other (unknown) Critical Care Note Critical Care Time?: No Stability Stability form required: No Heart Score Heart Score: Heart Score Response (Comments) Value History N/A 0 EKG N/A 0 Age N/A 0 Risk Factors N/A 0 Troponin N/A 0 Total 0 I personally scribed for AURELIANO ULLOA MD ([email or web address]) on 02/11/25 at 20:44. Electronically submitted by Hema Castro [email or web address]). AURELIANO ULLOA MD Feb 11, 2025 20:44
[2025-02-11] MEDS: HYDROcodone-ACET 5/325MG TAB PO ONE (21:07)
[2025-02-11 21:16] VITALS: PULSE 60; RESP 18; O2SAT 97
[2025-02-11] MEDS: fentaNYL CITRATE 100 MCG/2 ML VL IV ONE (22:51)
[2025-02-11] MEDS: SODIUM CHLORIDE 0.9% 1,000 ML IV ONE (22:51)
[2025-02-11] MEDS: cefTRIAXone 1GM/50ML D5W 50 ML IV ONE ×2 (23:01)
[2025-02-12] VITALS (7 sets, daily range): BP systolic 138–186; BP diastolic 86–101; PULSE 69–78; RESP 16–20; TEMP 98.2–98.9; O2SAT 94–100
[2025-02-12] MEDS ORDERED: NITROGLYCERIN 0.4 MG SL TAB SL PRN (08:00)
[2025-02-12] MEDS ORDERED: ALPR1TAB7 PO (08:00)
[2025-02-12] MEDS ORDERED: VILA10TA2 PO (08:00)
[2025-02-12] MEDS ORDERED: ONDANSETRON HCL 4 MG/2 ML VIAL IV PRN (08:00)
[2025-02-12] MEDS ORDERED: ALPRAZOLAM 1 MG PO PRN (08:00)
[2025-02-12] MEDS ORDERED: MORPHINE SULFATE INJ 2 MG/ml SYRG IV PRN (08:00)
[2025-02-12] MEDS ORDERED: APIX2.5T PO (08:00)
[2025-02-12] MEDS ORDERED: DOCUSATE SOD 100 MG CAP PO PRN (08:00)
[2025-02-12] MEDS ORDERED: LISI40TA PO (08:00)
--- NOTE | 2025-02-12 08:21 | DVHHP2 ---
History of Present Illness Reason for Visit: Abdominal pain, back pain History of Present Illness Tatianna Cherry is a 64-year-old female with past medical history of hypertension, atrial fibrillation, depression, and COPD who comes in with complaints of abdominal pain and back pain. Patient states that she has not had a bowel movement for 3 days and her abdomen hurts. She states the pain radiates to her back. CT scan of abdomen shows no acute process. Will order KUB and UA. Cardiovascular: AFIB, HTN Pulmonary: COPD Psych: Depression Past Surgical History: (x 3), Other (PTCA with 2 stents) Smoke: No ALCOHOL: none Drugs: Marijuana Lives: with Family Domestic Violence: Neg Review of Systems Constitutional: No: Fever, Chills, Sweats, Weakness, Malaise, Other Eyes: No: Pain, Vision change, Conjunctivae inflammation, Eyelid inflammation, Other, Redness ENT: No: Ear pain, Ear discharge, Nose pain, Nose discharge, Nose congestion, Mouth pain, Mouth swelling, Throat pain, Throat swelling, Other Respiratory: No: Cough, Dry, Shortness of breath, SOB with excertion, Wheezing, Hemoptysis, Pleuritic Pain, Sputum, Wheezing, Other Cardiovascular: No: Chest Pain, Palpitations, Orthopnea, Paroxysmal Noc. Dyspnea, Edema, Lt Headedness, Other Gastrointestinal: Abdominal Pain, Constipation (No BM for 2 days); No: Nausea, Vomiting, Diarrhea, Melena, Hematochezia, Other Genitourinary: No Dysuria, No Frequency, No Incontinence, No Hematuria, No Retention, No Other Musculoskeletal: back pain; No: other, neck pain, shoulder pain, arm pain, hand pain, leg pain, foot pain Skin: No: Rash, Lesions, Jaundice, Bruising, Other Neurological: No: Weakness, Numbness, Incoordination, Change in speech, Confusion, Seizures, Other Allergies: Coded Allergies: NO KNOWN ALLERGIES (Unverified , 01/02/25) Medications Current Medications Medications Dose Ordered Sig/Lucrecia Route Start Time Stop Time Status Last Admin Dose Admin Acetaminophen/ Hydrocodone Bitart 1 tab Q4HP PRN PO 02/12/25 08:00 UNV Ondansetron HCl 4 mg Q4HP PRN IV 02/12/25 08:00 UNV Docusate Sodium 100 mg BIDPRN PRN PO 02/12/25 08:00 UNV Acetaminophen 650 mg Q6HP PRN PO 02/12/25 08:00 UNV Nitroglycerin 0.4 mg Q5MINP PRN SL 02/12/25 08:00 UNV Morphine Sulfate 2 mg Q30M PRN IV 02/12/25 08:00 UNV Aspirin 81 mg DAILY PO 02/12/25 10:00 UNV Patient Own Medication 1 tab QPM PO 02/12/25 18:00 UNV Exam Vital Signs Vital Signs Date Time Temp Pulse Resp B/P (MAP) Pulse Ox O2 Delivery O2 Flow Rate FiO2 02/12/25 06:47 97.8 81 15 177/99 (125) 94 97.8 02/11/25 21:16 Room Air* 0 21 General Appearance: Alert, Oriented X3, Cooperative, moderate distress HEENT: Atraumatic, PERRLA Respiratory: Clear to auscultation, Normal air movement Cardiovascular: Regular rate, Normal S1, Normal S2 Abdominal: Normal bowel sounds, Soft, No tenderness Extremities: No clubbing, No cyanosis, No edema, Normal pulses Skin: No rashes, No breakdown, No significant lesion Neuro: Normal gait, Normal speech, Strength at 5/5 X4 ext Psych/Mental Status: Mental status NL, Mood NL Labs/Xrays Labs Test 02/11/25 19:10 Range/Units White Blood Count 15.0 H 4.4-10.8 10^3/uL Red Blood Count 4.79 4.0-5.20 10^6/uL Hemoglobin 15.1 12.2-16.2 g/dL Hematocrit 45.3 36.0-46.0 % Mean Corpuscular Volume 94.6 80.0-100.0 fL Mean Corpuscular Hemoglobin 31.5 28.0-32.0 pg Mean Corpuscular Hemoglobin Concent 33.4 32.0-36.0 g/dL Red Cell Distribution Width 14.7 H 11.8-14.3 % Platelet Count 300 140-450 10^3/uL Mean Platelet Volume 7.6 6.9-10.8 fL Neutrophils (%) (Auto) 85.2 H 37.0-80.0 % Lymphocytes (%) (Auto) 9.2 L 10.0-50.0 % Monocytes (%) (Auto) 5.5 0.0-12.0 % Eosinophils (%) (Auto) 0.0 0.0-7.0 % Basophils (%) (Auto) 0.1 0.0-2.0 % Neutrophils # (Auto) 12.8 H 1.6-8.6 10 ^3/uL Lymphocytes # (Auto) 1.4 0.4-5.4 10 ^3/uL Monocytes # (Auto) 0.8 0-1.3 10 ^3/uL Eosinophils # (Auto) 0 0-0.8 10 ^3/uL Basophils # (Auto) 0 0-0.2 10 ^3/uL Nucleated Red Blood Cells 0.1 % Sodium Level 139 136-145 mmol/L Potassium Level 3.9 3.5-5.1 mmol/L Chloride Level 103 98-107 mmol/L Carbon Dioxide Level 27 20-31 mmol/L Anion Gap 9 5-15 Blood Urea Nitrogen 14 9-23 mg/dL Creatinine 1.00 0.550-1.02 mg/dL Glomerular Filtration Rate Calc 63 >90 mL/min BUN/Creatinine Ratio 14.0 10.0-20.0 Serum Glucose 135 H 74-106 mg/dL Calcium Level 10.5 H 8.7-10.4 mg/dL Total Bilirubin 0.6 0.2-1.0 mg/dL Aspartate Amino Transferase (AST) 23 13-40 U/L Alanine Aminotransferase (ALT) 31 7-40 U/L Alkaline Phosphatase 92 46-116 U/L Total Protein 7.4 5.7-8.2 g/dL Albumin 5.2 H 3.2-4.8 g/dL Lipase 27 12-53 U/L Exam: CT CT AB PEL WO CON-NO ORAL OR IV FINDINGS: Evaluation of solid organs is limited due to lack of intravenous contrast use. Findings: Lung Bases: No acute or significant lung base finding. Normal heart size. No pleural or pericardial effusion. Liver: The liver is normal in size. No focal lesions. Gallbladder and Biliary Tree: Unremarkable Spleen: Unremarkable Pancreas: The pancreas is grossly normal in appearance. Adrenal Glands: Unremarkable Kidneys: Kidneys are grossly normal without calculi or hydronephrosis. Bladder: Grossly unremarkable for degree of distention. Bowel: The stomach is grossly normal in appearance. Small bowel and colon are normal in caliber and distribution. The appendix is not visualized; however, no secondary findings of acute appendicitis identified. Ascites: Absent Lymphadenopathy: No mesenteric, retroperitoneal or periportal lymphadenopathy. Abdominal Wall and Mesentery: Unremarkable. Vasculature: The visualized abdominal aorta is normal in size and caliber. Evaluation of abdominal and pelvic vessels is limited due to lack of intravenous contrast. Pelvic Organs: Unremarkable Musculoskeletal: No aggressive focal bony lesions, acute fractures or dislocation. Soft tissues: Unremarkable IMPRESSION: 1. No findings of bowel obstruction. 2. No cholelithiasis Assessment/Plan Assessment/Plan Assessment: Intractable back pain, Hypertensive urgency, Abdominal pain, Constipation, Leukocytosis, Atrial fibrillation, Depression, Plan: Admit to [facility], Pain management, KUB, UA, IV antibiotics, Lactulose PO x 1, Home medications reconciled, Plan discussed with: Patient My Orders Orders - SAUD DE LA ROSA Procedure Category Date Status Time Urinalysis LAB 02/12/25 Logged 07:52 Admit ADMIT 02/12/25 Transmitted 07:52 Code Status CODE 02/12/25 Transmitted 07:52 2 Gm Sodium Diet DIET 02/12/25 Transmitted Breakfast Hydrocodone-Acet PHA 02/12/25 Logged 5/325mg Tab ([place] 08:00 Ondansetron Hcl PHA 02/12/25 Logged (Zofran) 08:00 Docusate Sodium [facility] 02/12/25 Logged Capsule (Colace 08:00 Complete Blood Count LAB 02/13/25 Verified 04:00 Comprehensive LAB 02/13/25 Verified Metabolic Panel 04:00 Condition: Serious [facility] 02/12/25 In Process 07:52 Acetaminophen Tablet [facility] 02/12/25 Logged (Tylenol Tablet) 08:00 Nitroglycerin [facility] 02/12/25 Logged Sublingual (Ntrostat 08:00 Morphine Sulfate [facility] 02/12/25 Logged Injection 08:00 Stat Ekg For Chest [facility] 02/12/25 In Process Pain 07:52 Notify Of Changes [facility] 02/12/25 In Process From Base 07:52 Glass Ribbon Machine Operator For [facility] 02/12/25 In Process 24 Hours 07:52 Emergency Dysrhythmia [facility] 02/12/25 In Process Protocol 07:52 Rhythm Strips Once [facility] 02/12/25 In Process Every Shift 07:52 Oxygen By Nasal RT 02/12/25 Transmitted Cannula 07:52 Kub Abdomen Single XY 02/12/25 Logged View 07:52 Aspirin Enteric PHA 02/12/25 Logged Coated Tablet 10:00 (Nf) Atorvastatin PHA 02/12/25 Logged Calcium (Lipitor) 18:00 Apixaban (Eliquis) PHA 02/12/25 Verified 10:00 (Nf) Alprazolam PHA 02/12/25 Verified 08:00 (Nf) Lisinopril PHA 02/12/25 Verified (Zestril) 10:00 (Nf) Vilazodone PHA 02/12/25 Verified Hydrochloride 10:00 Date of Service: Feb 12, 2025 Billing Provider: SAUD DE LA ROSA Common Visit Codes: [id number] INP/OBS CARE (MOD) SAUD DE LA ROSA Feb 12, 2025 08:21
[2025-02-12] MEDS: cloNIDine HCL 0.1 MG TAB PO ONE (08:30)
[2025-02-12] MEDS: HYDROcodone-ACET 5/325MG TAB PO PRN (08:31)
[2025-02-12] MEDS ORDERED: PATIENTS OWN MEDICATION (Lisinopril (Zestril) 1 TAB) PO SCH (10:00)
[2025-02-12] MEDS: VILAZODONE HYDROCHLORIDE 10 MG PO SCH (10:00)
[2025-02-12] MEDS: APIXABAN 2.5 MG TAB PO SCH (10:23)
[2025-02-12] MEDS: LISINOPRIL 20 MG TAB PO SCH (10:23)
[2025-02-12] MEDS: ASPirin-EC 81 mg tab PO SCH (10:23)
[2025-02-12] MEDS: ACETAMINOPHEN 325 MG TAB PO PRN (10:24)
[2025-02-12 12:11] LABS: Urine Bacteria None Seen /hpf (None Seen)
[2025-02-12 12:28] LABS: Urine Blood Negative /uL (Negative); Urine Clarity Clear (Clear); Urine Color Light-Yellow (Yellow); Urine Mucus FEW (None Seen); Urine Protein, UAD TRACE (Negative); Urine Specific Gravity 1.019 (1.001-1.035); Urine Squamous Epithelial Cell FEW /hpf (<5); Urine Urobilinogen Normal (Negative); Urine WBC 1 /HPF (0-5); Urine pH 6.5 (5.0-9.0)
[2025-02-12] MEDS: cefTRIAXone 1GM/50ML D5W 50 ML IV SCH (12:57)
--- NOTE | 2025-02-12 13:59 | DVH ---
Date: 02/12/2025 01:32 PM Examination: XY KUB ABDOMEN SINGLE VIEW History: Constipation/back pain Comparison: None TECHNIQUE: Frontal views of the abdomen was obtained. FINDINGS: Bowel gas pattern is unremarkable. The lung bases are unremarkable. No acute osseous abnormality identified. IMPRESSION: 1. Nonobstructive bowel gas pattern. 2. Stool throughout the colon
[2025-02-12 14:18] LABS: Potassium 3.7 mmol/L (3.5-5.1); Sodium 143 mmol/L (136-145)
[2025-02-12 14:19] LABS: Anion Gap 9 (5-15); Carbon Dioxide 26 mmol/L (20-31)
[2025-02-12 14:20] LABS: Chloride 108 mmol/L (98-107)
[2025-02-12 14:24] LABS: BUN/Creatinine Ratio 17.3 (10.0-20.0); Blood Urea Nitrogen 14 mg/dL (9-23)
[2025-02-12 14:26] LABS: Glucose 110 mg/dL (74-106)
[2025-02-12] MEDS: metroNIDAZOLE 500MG/100ML 100 ML IV SCH (14:46)
[2025-02-12] MEDS: cloNIDine HCL 0.1 MG TAB PO PRN (16:10)
[2025-02-12] MEDS: LACTULOSE 20Gm/30ML SOLN PO ONE ×2 (16:10→16:30)
--- NOTE | 2025-02-12 16:58 | DVHPN2 ---
Subjective Continues to have abdominal pain Reviewed: Care Plan, H&P, Labs, Medications Changes from previous H/P or p: No Changes General: Per HPI Eyes: No Pain, No Vision change, No Conjunctivae inflammation, No Eyelid inflammation, No Other, No Redness ENT: No Ear pain, No Ear discharge, No Nose pain, No Nose discharge, No Nose congestion, No Mouth pain, No Mouth swelling, No Throat pain, No Throat swelling, No Other Cardiovascular: No Chest Pain, No Palpitations, No Orthopnea, No Paroxysmal Noc. Dyspnea, No Edema, No Lt Headedness, No Other Respiratory: No Cough, No Dry, No Shortness of breath, No SOB with excertion, No Wheezing, No Hemoptysis, No Pleuritic Pain, No Sputum, No Other Gastrointestinal: No Nausea, No Vomiting; Abdominal Pain; No Diarrhea; C onstipation (No BM for 2 days); No Melena, No Hematochezia, No Other Genitourinary: No Dysuria, No Frequency, No Incontinence, No Hematuria, No Retention, No Other Musculoskeletal: No other, No neck pain, No shoulder pain, No arm pain; back pain; No hand pain, No leg pain, No foot pain Skin: No Rash, No Lesions, No Jaundice, No Bruising, No Other Objective Vitals Vital Signs Date Time Temp Pulse Resp B/P (MAP) Pulse Ox O2 Delivery O2 Flow Rate FiO2 02/12/25 16:10 176/102 02/12/25 12:48 98.2 76 20 94 98.2 02/12/25 09:41 Room Air* 0 21 Intake/Output Intake and Output 02/12/25 07:00 Intake Total 1050 ml Balance 1050 ml Intake IV Total 1050 ml General Appearance: Alert, Oriented X3, Cooperative, mild distress HEENT: Atraumatic, PERRLA Cardiovascular: Normal S1, Normal S2 Neuro: Strength at 5/5 X4 ext, Cranial nerves 3-12 NL Skin: Dry, Intact Psych/Mental Status: Mental status NL, Mood NL Medications Current Medications Medications Dose Ordered Sig/Lucrecia Route Start Time Stop Time Status Last Admin Dose Admin Acetaminophen/ Hydrocodone Bitart 1 tab Q4HP PRN PO 02/12/25 08:00 02/12/25 14:58 1 TAB Ondansetron HCl 4 mg Q4HP PRN IV 02/12/25 08:00 Docusate Sodium 100 mg BIDPRN PRN PO 02/12/25 08:00 Acetaminophen 650 mg Q6HP PRN PO 02/12/25 08:00 02/12/25 10:24 650 MG Nitroglycerin 0.4 mg Q5MINP PRN SL 02/12/25 08:00 Morphine Sulfate 2 mg Q30M PRN IV 02/12/25 08:00 Aspirin 81 mg DAILY PO 02/12/25 10:00 02/12/25 10:23 81 MG Patient Own Medication 1 tab QPM PO 02/12/25 18:00 UNV Apixaban 2.5 mg DAILY PO 02/12/25 10:00 02/12/25 10:23 2.5 MG Patient Own Medication 1 mg BIDPRN PRN PO 02/12/25 08:00 UNV Patient Own Medication 1 tab DAILY PO 02/12/25 10:00 UNV Patient Own Medication 1 tab DAILY PO 02/12/25 10:00 Clonidine HCl 0.1 mg Q6HP PRN PO 02/12/25 08:15 02/12/25 16:10 0.1 MG Atorvastatin Calcium 40 mg HS PO 02/12/25 22:00 Alprazolam 1 mg BIDPRN PRN PO 02/12/25 09:00 Lisinopril 20 mg DAILY PO 02/12/25 10:00 02/12/25 10:23 20 MG Ceftriaxone Sodium 50 ml @ 100 mls/hr DAILY@09 IV 02/12/25 12:13 02/12/25 12:57 100 MLS/HR Metronidazole 100 ml @ 100 mls/hr Q8HR IV 02/12/25 14:00 02/12/25 14:46 100 MLS/HR Laboratory Results Laboratory Tests 02/11/25 19:10 02/12/25 13:12 Chemistry Test 02/11/25 19:10 02/12/25 13:12 Albumin 5.2 g/dL (3.2-4.8) H Calcium Level 10.5 mg/dL (8.7-10.4) H 10.0 mg/dL (8.7-10.4) Total Protein 7.4 g/dL (5.7-8.2) Lipid panel Test 02/11/25 19:10 Lipase 27 U/L (12-53) LFT Test 02/11/25 19:10 Alanine Aminotransferase (ALT) 31 U/L (7-40) Alkaline Phosphatase 92 U/L (46-116) Aspartate Amino Transferase (AST) 23 U/L (13-40) Total Bilirubin 0.6 mg/dL (0.2-1.0) Urinalysis Test 02/12/25 11:55 Urine Color Light-yellow (Yellow) Urine Clarity Clear (Clear) Urine pH 6.5 (5.0-9.0) Urine Specific [place] 1.019 (1.001-1.035) Urine Protein Trace (Negative) H Urine Ketones Trace (Negative) Urine Blood Negative /uL (Negative) Urine Nitrite Negative (Negative) Urine Bilirubin Negative (Negative) Urine Urobilinogen Normal mg/dL (Negative) Urine Leukocyte Esterase Negative /uL (Negative) Urine RBC 4 /hpf (0 - 4) Urine Microscopic WBC 1 /HPF (0-5) Urine Squamous Epithelial Cells Few /hpf (<5) Urine Bacteria None seen /hpf (None Seen) Urine Mucus Few (None Seen) Urine Glucose Normal mg/dL (Normal) Labs and/or images reviewed: Labs reviewed by me, Image(s) reviewed by me Assessment/Plan Assessment/Plan Impression: -abdominal pain, probably secondary to constipation -obesity -leukocytosis, rule out sepsis -atrial fibrillation -COPD Plan: -KUB reveals significant stool burden. Bowel regimen with lactulose -continue anticoagulation -empiric antibiotic therapy -bronchodilators p.r.n. -repeat labs in a.m. -long discussion made with the patient regarding findings of KUB. All questions answered. Total time spent with patient and family regarding advance care plannin minutes. Total time spent with patient discussing and formulating plan of care: 35 minutes. This medical document was created using an electronic medical record system with [employer] dictation system. Although this document has been carefully reviewed, there may still be some phonetic and typographical errors. These areas are purely typographical due to imperfections of the software programs, and do not reflect any compromise in the patient's medical care. Plan discussed with: Patient, Other (RN) My Orders Orders - MIKHAIL DINH [employer] Procedure Category Date Status Time Urine Bacterial ANGELI 02/12/25 In Process Culture 11:27 Metronidazole PHA 02/12/25 In Process 500mg/100ml (Flagyl 14:00 Stool Bacterial ANGELI 3/31/25 Logged Culture 11:27 Blood Culture ANGELI 02/12/25 In Process 11:31 Ceftriaxone 1gm/50ml PHA 02/12/25 In Process D5w (Rocephin) 12:13 Date of Service: Feb 12, 2025 Billing Provider: MIKHAIL DINH NP Common Visit Codes: 47055-MNC/OBS SAME DATE (HIGH) Secondary Visit Codes: 32151-KCXOXEVJ CARE PLAN 30 MINUTES MIKHAIL DINH NP Feb 12, 2025 16:58
[2025-02-12] MEDS ORDERED: PATIENTS OWN MEDICATION (Atorvastatin Calcium (Lipitor) 1 TAB) PO SCH (18:00)
[2025-02-12] MEDS: ATORVASTATIN 20 MG TAB PO SCH (21:05)
[2025-02-12] MEDS: ALPRAZolam 0.5 MG TAB PO PRN (23:09)
[2025-02-13] VITALS (8 sets, daily range): BP systolic 106–175; BP diastolic 65–92; PULSE 58–95; RESP 18–20; TEMP 98–98.4; O2SAT 95–100
[2025-02-13] MEDS: HYDROcodone-ACET 5/325MG TAB PO ONE (06:31)
--- NOTE | 2025-02-13 07:14 | ECG ---
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
[2025-02-13 07:34] LABS: Basophils # (auto) 0 10 ^3/uL (0-0.2); Basophils % (auto) 0.2 % (0.0-2.0); Eosinophils # (auto) 0 10 ^3/uL (0-0.8); Eosinophils % (auto) 0.2 % (0.0-7.0); Hematocrit 38.3 % (36.0-46.0); Hemoglobin 13.3 g/dL (12.2-16.2); Lymphocytes # (auto) 1.9 10 ^3/uL (0.4-5.4); Lymphocytes % (auto) 17.7 % (10.0-50.0); Mean Corpuscular Hemoglobin 32.9 pg (28.0-32.0); Mean Corpuscular Hgb Conc. 34.6 g/dL (32.0-36.0); Mean Corpuscular Volume 94.9 fL (80.0-100.0); Monocytes % (auto) 9.7 % (0.0-12.0); Neutrophils # (auto) 7.6 10 ^3/uL (1.6-8.6); Neutrophils % (auto) 72.2 % (37.0-80.0); Nucleated Red Blood Cells % 0.1 %; Platelet Count (auto) 243 10^3/uL (140-450); Red Blood Cells 4.03 10^6/uL (4.0-5.20); Red Cell Distribution Width 14.3 % (11.8-14.3); White Blood Cell 10.5 10^3/uL (4.4-10.8)
[2025-02-13 07:56] LABS: Alanine Aminotransferase 21 U/L (7-40); Albumin 4.3 g/dL (3.2-4.8); Alkaline Phosphatase 71 U/L (46-116); Anion Gap 6 (5-15); Aspartate Aminotransferase 16 U/L (13-40); BUN/Creatinine Ratio 15.4 (10.0-20.0); Blood Urea Nitrogen 12 mg/dL (9-23); Calcium 9.5 mg/dL (8.7-10.4); Carbon Dioxide 26 mmol/L (20-31); Sodium 139 mmol/L (136-145); Total Protein 6.4 g/dL (5.7-8.2)
[2025-02-13 07:57] LABS: Bilirubin, Total 0.6 mg/dL (0.2-1.0)
[2025-02-13 07:59] LABS: Chloride 107 mmol/L (98-107); Glucose 106 mg/dL (74-106); Potassium 3.4 mmol/L (3.5-5.1)
[2025-02-13] MEDS: POLYETHYLENE GLYCOL 17 GM PWDR PO ONE (09:00)
[2025-02-13] MEDS: METOCLOPRAMIDE HCL 5MG/ml INJ 2ml VIAL IV ONE (10:50)
[2025-02-13] MEDS: POTASSIUM EFFERVESENT TAB 25 MEQ PO ONE (11:46)
--- NOTE | 2025-02-13 12:13 | DVHPN2 ---
Subjective Patient reports that her abdominal and back pain has improved. Reviewed: Care Plan, H&P, Labs, Medications Changes from previous H/P or p: Changes General: Per HPI Eyes: No Pain, No Vision change, No Conjunctivae inflammation, No Eyelid inflammation, No Other, No Redness ENT: No Ear pain, No Ear discharge, No Nose pain, No Nose discharge, No Nose congestion, No Mouth pain, No Mouth swelling, No Throat pain, No Throat swelling, No Other Cardiovascular: No Chest Pain, No Palpitations, No Orthopnea, No Paroxysmal Noc. Dyspnea, No Edema, No Lt Headedness, No Other Respiratory: No Cough, No Dry, No Shortness of breath, No SOB with excertion, No Wheezing, No Hemoptysis, No Pleuritic Pain, No Sputum, No Other Gastrointestinal: No Nausea, No Vomiting; Abdominal Pain; No Diarrhea; C onstipation (No BM for 2 days); No Melena, No Hematochezia, No Other Genitourinary: No Dysuria, No Frequency, No Incontinence, No Hematuria, No Retention, No Other Musculoskeletal: No other, No neck pain, No shoulder pain, No arm pain; back pain; No hand pain, No leg pain, No foot pain Skin: No Rash, No Lesions, No Jaundice, No Bruising, No Other Objective Vitals Vital Signs Date Time Temp Pulse Resp B/P (MAP) Pulse Ox O2 Delivery O2 Flow Rate FiO2 02/13/25 10:49 121/84 02/13/25 08:52 98.4 58 20 95 98.4 02/12/25 20:00 Room Air* 0 21 Intake/Output Intake and Output 02/13/25 07:00 Intake Total 1950 ml Output Total 904 ml Balance 1046 ml Intake Oral 1600 ml IV Total 350 ml Output Urine Total 900 ml Stool Total 4 ml # Voids 2 General Appearance: Alert, Oriented X3, Cooperative, mild distress HEENT: Atraumatic, PERRLA Cardiovascular: Normal S1, Normal S2 Abdomen: Normal bowel sounds, Soft, No tenderness, No hepatospenomegaly Neuro: Strength at 5/5 X4 ext, Cranial nerves 3-12 NL Skin: Dry, Intact Psych/Mental Status: Mental status NL, Mood NL Medications Current Medications Medications Dose Ordered Sig/Lucrecia Route Start Time Stop Time Status Last Admin Dose Admin Acetaminophen/ Hydrocodone Bitart 1 tab Q4HP PRN PO 02/12/25 08:00 02/13/25 05:22 1 TAB Ondansetron HCl 4 mg Q4HP PRN IV 02/12/25 08:00 Docusate Sodium 100 mg BIDPRN PRN PO 02/12/25 08:00 Acetaminophen 650 mg Q6HP PRN PO 02/12/25 08:00 02/12/25 10:24 650 MG Nitroglycerin 0.4 mg Q5MINP PRN SL 02/12/25 08:00 Morphine Sulfate 2 mg Q30M PRN IV 02/12/25 08:00 Aspirin 81 mg DAILY PO 02/12/25 10:00 02/13/25 10:50 81 MG Patient Own Medication 1 tab QPM PO 02/12/25 18:00 UNV Apixaban 2.5 mg DAILY PO 02/12/25 10:00 02/13/25 10:49 2.5 MG Patient Own Medication 1 mg BIDPRN PRN PO 02/12/25 08:00 UNV Patient Own Medication 1 tab DAILY PO 02/12/25 10:00 UNV Patient Own Medication 1 tab DAILY PO 02/12/25 10:00 Clonidine HCl 0.1 mg Q6HP PRN PO 02/12/25 08:15 02/13/25 04:22 0.1 MG Atorvastatin Calcium 40 mg HS PO 02/12/25 22:00 02/12/25 21:05 40 MG Alprazolam 1 mg BIDPRN PRN PO 02/12/25 09:00 02/12/25 23:09 1 MG Lisinopril 20 mg DAILY PO 02/12/25 10:00 02/13/25 10:49 20 MG Ceftriaxone Sodium 50 ml @ 100 mls/hr DAILY@09 IV 02/12/25 12:13 02/13/25 10:51 100 MLS/HR Metronidazole 100 ml @ 100 mls/hr Q8HR IV 02/12/25 14:00 02/13/25 05:46 100 MLS/HR Laboratory Results Laboratory Tests 02/13/25 06:22 Chemistry Test 02/12/25 13:12 02/13/25 06:22 Calcium Level 10.0 mg/dL (8.7-10.4) 9.5 mg/dL (8.7-10.4) Albumin 4.3 g/dL (3.2-4.8) Total Protein 6.4 g/dL (5.7-8.2) LFT Test 02/13/25 06:22 Alanine Aminotransferase (ALT) 21 U/L (7-40) Alkaline Phosphatase 71 U/L (46-116) Aspartate Amino Transferase (AST) 16 U/L (13-40) Total Bilirubin 0.6 mg/dL (0.2-1.0) Urinalysis Test 02/12/25 11:55 Urine Color Light-yellow (Yellow) Urine Clarity Clear (Clear) Urine pH 6.5 (5.0-9.0) Urine Specific [place] 1.019 (1.001-1.035) Urine Protein Trace (Negative) H Urine Ketones Trace (Negative) Urine Blood Negative /uL (Negative) Urine Nitrite Negative (Negative) Urine Bilirubin Negative (Negative) Urine Urobilinogen Normal mg/dL (Negative) Urine Leukocyte Esterase Negative /uL (Negative) Urine RBC 4 /hpf (0 - 4) Urine Microscopic WBC 1 /HPF (0-5) Urine Squamous Epithelial Cells Few /hpf (<5) Urine Bacteria None seen /hpf (None Seen) Urine Mucus Few (None Seen) Urine Glucose Normal mg/dL (Normal) Microbiology Microbiology Date/Time Source Procedure Growth Status 02/12/25 11:55 Voided Urine Urine Culture - Preliminary Resulted Labs and/or images reviewed: Labs reviewed by me, Image(s) reviewed by me Assessment/Plan Assessment/Plan Impression: -abdominal pain, probably secondary to constipation -obesity -leukocytosis, rule out sepsis -atrial fibrillation -COPD Plan: Events: Patient refusing MiraLax today. Discussed KUB findings. Leukocytosis improved. -KUB reveals significant stool burden. Bowel regimen with lactulose -continue anticoagulation -empiric antibiotic therapy -bronchodilators p.r.n. -reassess for discharge in a.m. Total time spent with patient discussing and formulating plan of care: 35 minutes. This medical document was created using an electronic medical record system with [employer] system. Although this document has been carefully reviewed, there may still be some phonetic and typographical errors. These areas are purely typographical due to imperfections of the software programs, and do not reflect any compromise in the patient's medical care. Plan discussed with: Patient, Other (RN) Date of Service: Feb 13, 2025 Billing Provider: MIKHAIL DINH NP Common Visit Codes: [id number] INP/OBS CARE(HIGH) MIKHAIL DINH NP Feb 13, 2025 12:13
[2025-02-14 01:00] VITALS: BP 115/71; PULSE 69; RESP 20; TEMP 98.3; O2SAT 100
[2025-02-14 05:00] VITALS: BP 121/73; PULSE 61; RESP 19; TEMP 98.4; O2SAT 97
[2025-02-14 08:00] VITALS: PULSE 58; PULSE 61; RESP 18; O2SAT 97
[2025-02-14 08:53] VITALS: BP 118/67; PULSE 58; RESP 18; TEMP 98.1; O2SAT 97
--- NOTE | 2025-02-14 11:07 | DVHDS2 ---
Discharge Summary Date of Admission Feb 12, 2025 at 07:52 Date of Discharge: Feb 14, 2025 Admitting Diagnosis Abdominal pain Labs/Diagnostic Data: Laboratory Results Test 02/13/25 06:22 02/12/25 13:12 02/12/25 11:55 02/11/25 19:10 White Blood Count 10.5 10^3/uL (4.4-10.8) Red Blood Count 4.03 10^6/uL (4.0-5.20) Hemoglobin 13.3 g/dL (12.2-16.2) Hematocrit 38.3 % (36.0-46.0) Mean Corpuscular Volume 94.9 fL (80.0-100.0) Mean Corpuscular Hemoglobin 32.9 pg (28.0-32.0) Mean Corpuscular Hemoglobin Concent 34.6 g/dL (32.0-36.0) Red Cell Distribution Width 14.3 % (11.8-14.3) Platelet Count 243 10^3/uL (140-450) Mean Platelet Volume 7.7 fL (6.9-10.8) Neutrophils (%) (Auto) 72.2 % (37.0-80.0) Lymphocytes (%) (Auto) 17.7 % (10.0-50.0) Monocytes (%) (Auto) 9.7 % (0.0-12.0) Eosinophils (%) (Auto) 0.2 % (0.0-7.0) Basophils (%) (Auto) 0.2 % (0.0-2.0) Neutrophils # (Auto) 7.6 10 ^3/uL (1.6-8.6) Lymphocytes # (Auto) 1.9 10 ^3/uL (0.4-5.4) Monocytes # (Auto) 1.0 10 ^3/uL (0-1.3) Eosinophils # (Auto) 0 10 ^3/uL (0-0.8) Basophils # (Auto) 0 10 ^3/uL (0-0.2) Nucleated Red Blood Cells 0.1 % Sodium Level 139 mmol/L (136-145) Potassium Level 3.4 mmol/L (3.5-5.1) Chloride Level 107 mmol/L (98-107) Carbon Dioxide Level 26 mmol/L (20-31) Anion Gap 6 (5-15) Blood Urea Nitrogen 12 mg/dL (9-23) Creatinine 0.78 mg/dL (0.550-1.02) Glomerular Filtration Rate Calc 85 mL/min (>90) BUN/Creatinine Ratio 15.4 (10.0-20.0) Serum Glucose 106 mg/dL (74-106) Calcium Level 9.5 mg/dL (8.7-10.4) Total Bilirubin 0.6 mg/dL (0.2-1.0) Aspartate Amino Transferase (AST) 16 U/L (13-40) Alanine Aminotransferase (ALT) 21 U/L (7-40) Alkaline Phosphatase 71 U/L (46-116) Total Protein 6.4 g/dL (5.7-8.2) Albumin 4.3 g/dL (3.2-4.8) Troponin I High Sensitivity 10 ng/L (</=34) Urine Color Light-yellow (Yellow) Urine Clarity Clear (Clear) Urine pH 6.5 (5.0-9.0) Urine Specific [place] 1.019 (1.001-1.035) Urine Protein Trace (Negative) Urine Ketones Trace (Negative) Urine Blood Negative /uL (Negative) Urine Nitrite Negative (Negative) Urine Bilirubin Negative (Negative) Urine Urobilinogen Normal mg/dL (Negative) Urine Leukocyte Esterase Negative /uL (Negative) Urine RBC 4 /hpf (0 - 4) Urine Microscopic WBC 1 /HPF (0-5) Urine Squamous Epithelial Cells Few /hpf (<5) Urine Bacteria None seen /hpf (None Seen) Urine Mucus Few (None Seen) Urine Glucose Normal mg/dL (Normal) Lipase 27 U/L (12-53) Other Laboratory Tests 02/13/25 06:22 Brief Hx & Hospital Course: History of Present Illness Tatianna Cherry is a 64-year-old female with past medical history of hypertension, atrial fibrillation, depression, and COPD who comes in with complaints of abdominal pain and back pain. Patient states that she has not had a bowel movement for 3 days and her abdomen hurts. She states the pain radiates to her back. CT scan of abdomen shows no acute process. Will order KUB and UA. Course of hospitalization: KUB revealed large stool burden. Patient had IV hydration, and empiric antibiotic therapy for white blood cell count, as well as bowel regimen. Patient was able to evacuate her bowels. All cultures are negative thus far. Leukocytosis improved. Patient was to be discharged home with stool softeners. She was instructed to follow up with her PCP in 1-2 weeks. Physical examination General: Alert and Oriented x3. No acute distress. Well-nourished. Obese Eyes: EOMI. Anicteric. HENT: Moist mucous membranes. Lungs: Clear to auscultation bilaterally. No accessory muscle use. Cardiovascular: Regular rate and rhythm. No murmur. No JVD. Abdomen: Soft, non-tender and non-distended. No palpable masses. Extremities: No edema. Non-tender. Skin: No rashes or lesions. Warm. Neurologic: No focal neurological deficits. CN II-XII grossly intact, but not individually tested. Psychiatric: Cooperative. Appropriate mood and affect. Total time spent with patient discussing and formulating plan of care: 35 minutes. This medical document was created using an electronic medical record system with [employer] dictation system. Although this document has been carefully reviewed, there may still be some phonetic and typographical errors. These areas are purely typographical due to imperfections of the software programs, and do not reflect any compromise in the patient's medical care. Condition at Discharge: Fair Final Diagnosis/Problems List Abdominal pain secondary to severe constipation Secondary diagnosis: -obesity -leukocytosis, ruled out sepsis -atrial fibrillation -COPD Discharge Disposition: [facility] Discharge Instruct/Medications Diet: Regular Activity: No Restrictions, As Tolerated Follow Up/Referral: Follow up with PCP in 1-2 weeks . Discharge Clinic if unable to be seen by PCP. Medications: Colace 100 mg p.o. b.i.d. for constipation x2 days Continue all home medications 36 Discharge Statement: "Patient was advised to return to the ER or call 911 if any headaches, dizziness, shortness of breath, chest pain, abdominal pain, bleeding, fevers, or worsening of medical condition. Patient was counseled about treatment plan, medications, possible side effects, patientverbalized understanding. All questions were answered to the best of my ability. This discharge took greater then 30 minutes in planning, reviewing documentation, counseling the patient, and discussing with other team members." ASSESSMENT ASSESSMENT Assessment Abdominal pain secondary to severe constipation Date of Service: Feb 14, 2025 Billing Provider: MIKHAIL DINH NP Common Visit Codes: 69430-UFZ/OBS DISCH DAY >30min MIKHAIL DINH NP Feb 14, 2025 11:07
[2025-02-14 12:52] VITALS: BP 125/78; PULSE 67; RESP 18; TEMP 98.2; O2SAT 94
[2025-02-14 13:10] VITALS: BP 118/67; TEMP 98.1
[2025-02-14] MEDS ORDERED: DOCU-94 PO (13:21)
[2025-02-14] MEDS ORDERED: LEVO500T91 PO (13:21)
== END 2025-02-14 13:55 | disposition home or self-care (01) | DRG 247 ==
LOC: ER 17:53 → EDBD 17:53 → ER 20:07 → OVERFLOW 02-12 07:52 → TELE-EAST 02-12 08:00
PROVIDERS: ADMIT Nurse Practitioner Acute Care; ATTEND Nurse Practitioner Acute Care
DX: K56.41 Fecal impaction (principal); D72.829 Elevated white blood cell count, unspecified; K59.00 Constipation, unspecified; E66.9 Obesity, unspecified; F32.A Depression, unspecified; I16.0 Hypertensive urgency; E78.5 Hyperlipidemia, unspecified; I48.91 Unspecified atrial fibrillation; J44.9 Chronic obstructive pulmonary disease, unspecified; Z98.891 History of uterine scar from previous surgery; Z79.82 Long term (current) use of aspirin; Z79.899 Other long term (current) drug therapy; Z83.3 Family history of diabetes mellitus; Z68.35 Body mass index [BMI] 35.0-35.9, adult
CPT/HCPCS: 36415; 74018; 74176; 80048; 80053; 81001; 83690; 84484; 85025; 87040; 87045; 87086; 87427; 93005; 96361; 96365; G0378; J3490